=== PATIENT | male | born 1960 | race Hispanic/Latino ===

== ENCOUNTER 2021-12-22 11:33 | Emergency (ER) | payer SELFPAY ==
[2021-12-22 11:39] VITALS: BP 101/65
--- NOTE | 2021-12-22 12:21 | XRay Report ---
CHEST 2 VIEWS INDICATION: sob. COMPARISON: None available FINDINGS: Support devices: None. Heart: Within normal limits. Lungs/pleura: Advanced emphysematous changes are evident. Bullous changes are present in the upper lo bes. There is linear scarring in the right upper lobe. No evidence for acute infiltrate, pleural effu cici or pneumothorax. Additional findings: None. IMPRESSION: No acute findings. Advanced emphysema. Signer Name: Guero Esquivel Jr, MD Signed: 12/22/2021 12:17 PM Workstation Name: [id number]
== END 2021-12-22 18:47 | disposition left against medical advice (07) ==
LOC: ED 11:33
DX: R06.00 Dyspnea, unspecified (principal); Z53.21 Procedure and treatment not carried out due to patient leaving prior to being seen by health care provider
CPT/HCPCS: 71046

== ENCOUNTER 2021-12-23 07:16 | Emergency (ER) | payer SELFPAY ==
[2021-12-23 07:26] VITALS: BP 122/78
[2021-12-23 08:00] LABS: Basophils % (Auto) 0.3 % (0.0-1.8); Eosinophils # (Auto) 0.4 K/mm3 (0.0-0.4); Eosinophils % (Auto) 4.1 % (0.0-4.3); Hematocrit 42.5 % (35.5-45.6); Hemoglobin 13.6 gm/dl (11.8-15.2); Lymphocytes # (Auto) 1.8 K/mm3 (1.2-5.4); Lymphocytes % (Auto) 20.9 % (13.4-35.0); Mean Corpuscular HGB Conc 32 % (32-34); Mean Corpuscular Volume 90 fl (84-94); Monocytes # (Auto) 1.2 K/mm3 (0.0-0.8); Monocytes % (Auto) 14.1 % (0.0-7.3); Platelet Count 223 K/mm3 (140-440); Red Blood Count 4.71 M/mm3 (3.65-5.03); Red Cell Distribution Width 17.2 % (13.2-15.2)
[2021-12-23 08:29] LABS: Alanine Aminotransferase 8 units/L (7-56); Albumin 4.1 g/dL (3.9-5); Blood Urea Nitrogen 19 mg/dL (9-20); Calcium 8.7 mg/dL (8.4-10.2); Hemolysis Index 11
[2021-12-23] MEDS ORDERED: IPRATROPIUM 0.02% NEBU 2.5 ML IH ONE (08:30)
[2021-12-23] MEDS ORDERED: ALBUTEROL 2.5 MG/3 ML NEBU IH ONE (08:30)
--- NOTE | 2021-12-23 08:30 | Emergency Department Report ---
ED General Adult HPI - General Chief complaint: Dyspnea/Respdistress Stated complaint: COB Time Seen by Provider: 12/23/21 07:35 Source: patient Mode of arrival: Ambulatory Limitations: No Limitations - History of Present Illness Initial comments: 61-year-old male patient presents with complaints of shortness of breath starting this morning. Patient states he has a history of emphysema and uses only an albuterol inhaler as needed for shortness of breath. Patient states he is still a smoker. He denies any chest pain, hemoptysis, leg pain /swelling, recent long travel, history of DVT/PE/cancer, loss of taste or smell, or cough. Patient states he is otherwise feeling well and requesting coffee. Patient was noted to be smoking outside of the hospital. Patient also denies any other past medical history - Related Data Previous Rx's Medication Instructions Recorded Last Taken Type Albuterol Sulfate [Proventil Hfa] 6.7 gm IH Q4H PRN #1 container 12/23/21 Unknown Rx Prednisone [predniSONE 10 mg 10 mg PO .TAPER #1 pack 12/23/21 Unknown Rx (6-Day Pack, 21 Tabs)] Allergies Allergy/AdvReac Type Severity Reaction Status Date / Time No Known Allergies Allergy Verified 12/23/21 07:20 ED Review of Systems ROS: Stated complaint: COB Other details as noted in HPI Constitutional: denies: chills, diaphoresis, fever, malaise ENT: denies: throat pain Respiratory: shortness of breath. denies: cough Cardiovascular: denies: chest pain Gastrointestinal: denies: abdominal pain Musculoskeletal: denies: joint swelling Neurological: denies: headache ED Past Medical Hx - Past Medical History Previous Medical History?: No - Surgical History Past Surgical History?: No - Medications Home Medications: Home Medications Medication Instructions Recorded Confirmed Last Taken Type Albuterol Sulfate [Proventil Hfa] 6.7 gm IH Q4H PRN #1 container 12/23/21 Unknown Rx Prednisone [predniSONE 10 mg 10 mg PO .TAPER #1 pack 12/23/21 Unknown Rx (6-Day Pack, 21 Tabs)] ED Physical Exam - General Limitations: No Limitations General appearance: alert, in no apparent distress - Head Head exam: Present: atraumatic, normocephalic - Eye Eye exam: Present: normal appearance. Absent: scleral icterus - Neck Neck exam: Present: normal inspection - Respiratory Respiratory exam: Present: rhonchi (diffuse). Absent: wheezes, rales, stridor, accessory muscle use - Cardiovascular Cardiovascular Exam: Present: regular rate, normal rhythm - Extremities Exam Extremities exam: Absent: calf tenderness (no swelling or tenderness noted bilaterally to lowr extremities) - Neurological Exam Neurological exam: Present: alert, oriented X3, normal gait - Psychiatric Psychiatric exam: Present: normal affect, normal mood ED Course Vital Signs 12/23/21 12/23/21 07:24 09:08 Temperature 98.4 F Pulse Rate 67 Pulse Rate [ 102 H Bilateral] Respiratory 20 Rate Respiratory 20 Rate [Bilateral ] Blood Pressure 122/78 O2 Sat by Pulse 100 Oximetry ED Medical Decision Making - Lab Data Result diagrams: 12/23/21 07:49 12/23/21 07:49 Lab Results 12/23/21 12/23/21 12/23/21 Range/Units 07:49 07:49 07:49 WBC 8.6 (4.5-11.0) K/mm3 RBC 4.71 (3.65-5.03) M/mm3 Hgb 13.6 (11.8-15.2) gm/dl Hct 42.5 (35.5-45.6) % MCV 90 (84-94) fl MCH 29 (28-32) pg MCHC 32 (32-34) % RDW 17.2 H (13.2-15.2) % Plt Count 223 (140-440) K/mm3 Lymph % (Auto) 20.9 (13.4-35.0) % Cuming % (Auto) 14.1 H (0.0-7.3) % Eos % (Auto) 4.1 (0.0-4.3) % Baso % (Auto) 0.3 (0.0-1.8) % Lymph # (Auto) 1.8 (1.2-5.4) K/mm3 Cuming # (Auto) 1.2 H (0.0-0.8) K/mm3 Eos # (Auto) 0.4 (0.0-0.4) K/mm3 Baso # (Auto) 0.0 (0.0-0.1) K/mm3 Seg Neutrophils % 60.6 (40.0-70.0) % Seg Neutrophils # 5.2 (1.8-7.7) K/mm3 Sodium 143 (137-145) mmol/L Potassium 4.3 (3.6-5.0) mmol/L Chloride 106.8 (98-107) mmol/L Carbon Dioxide 25 (22-30) mmol/L Anion Gap 16 mmol/L BUN 19 (9-20) mg/dL Creatinine 0.7 L (0.8-1.3) mg/dL Estimated GFR > 60 ml/min BUN/Creatinine Ratio 27 % Glucose 99 (75-100) mg/dL Calcium 8.7 (8.4-10.2) mg/dL Total Bilirubin 0.30 (0.1-1.2) mg/dL AST 13 (5-40) units/L ALT 8 (7-56) units/L Alkaline Phosphatase 89 (35-129) units/L Troponin T < 0.010 (0.00-0.029) ng/mL NT-Pro-B Natriuret Pep 51.23 (0-900) pg/mL Total Protein 6.8 (6.3-8.2) g/dL Albumin 4.1 (3.9-5) g/dL Albumin/Globulin Ratio 1.5 % - Radiology Data Radiology results: report reviewed CHEST 2 VIEWS INDICATION: sob. COMPARISON: None available FINDINGS: Support devices: None. Heart: Within normal limits. Lungs/pleura: Advanced emphysematous changes are evident. Bullous changes are present in the upper lobes. There is linear scarring in the right upper lobe. No evidence for acute infiltrate, pleural effusion or pneumothorax. Additional findings: None. IMPRESSION: No acute findings. Advanced emphysema. - Medical Decision Making 61-year-old male patient presents with complaints of shortness of breath starting this morning. Patient states he has a history of emphysema and uses only an albuterol inhaler as needed for shortness of breath. Patient states he is still a smoker. He denies any chest pain, hemoptysis, leg pain/swelling, recent long travel, history of DVT/PE/cancer, loss of taste or smell, or cough. Patient states he is otherwise feeling well and requesting coffee. Patient was noted to be smoking outside of the hospital. Patient also denies any other past medical history Patient given hour-long DuoNeb. He states his symptoms have significantly improved. Chest x-ray shows advanced emphysema without acute abnormalities. No rales or wheezing noted on exam, however there are rhonchi noted. His vitals are within normal limits and he is nontoxic-appearing. No respiratory distress is noted. He is stable for discharge home. Patient to discharge home with prednisone a refill of his inhaler. Recommend follow-up with primary care within 3 to 5 days. Discussed in detail signs and symptoms that should prompt immediate return to the ED with patient verbalized understanding Critical care attestation.: If time is entered above; I have spent that time in minutes in the direct care of this critically ill patient, excluding procedure time. ED Disposition Clinical Impression: Acute exacerbation of emphysema Disposition: HOME / SELF CARE / HOMELESS Is pt being admited?: No Condition: Stable Instructions: Chronic Obstructive Pulmonary Disease (ED), Chronic Obstructive Pulmonary Disease, [id number] Prescriptions: Prednisone [predniSONE 10 mg (6-Day Pack, 21 Tabs)] 10 mg PO .TAPER #1 pack Albuterol Sulfate [Proventil Hfa] 6.7 gm IH Q4H PRN #1 container PRN Reason: Shortness Of Breath Referrals: PRIMARY CARE, [Primary Care Provider] - 3-5 Days Forms: Work/School Release Form(ED)
[2021-12-23 08:36] LABS: BUN/Creatinine Ratio 27
[2021-12-23] MEDS ORDERED: dexAMETHasone 4 MG/ML VIAL IM STA (10:01)
--- NOTE | 2021-12-23 10:58 | Electrocardiograph Report ---
[facility] Test Date: 2021-12-23 Test Time: 08:32:47 Pat Name: RUSH ALMONTE Department: Room: Gender: M Clinical Education Specialist: [id number] Requested By: MARSHALL MAYO Order Number: [id number] Reading MD: Zac Littlejohn Measurements Intervals [place] Rate: 66 P: 76 [place]: 131 QRS: 75 QRSD: 83 T: 81 QT: 403 QTc: 422 Interpretive Statements Sinus rhythm No previous ECG available for comparison Electronically Signed On 12-23-2021 10:57:52 EST by Zac Littlejohn
== END 2021-12-23 10:39 | disposition home or self-care (01) ==
LOC: ED 07:16
DX: J44.1 Chronic obstructive pulmonary disease with (acute) exacerbation (principal)
CPT/HCPCS: 36415; 80053; 83880; 84484; 85025; 93005; 93010; 94644; 99283

== ENCOUNTER 2021-12-25 18:12 | Emergency (ER) | payer SELFPAY ==
[2021-12-25] MEDS ORDERED: ALBUTEROL 2.5 MG/3 ML NEBU IH ONE (18:45)
[2021-12-25] MEDS ORDERED: IPRATROPIUM 0.02% NEBU 2.5 ML IH ONE (18:45)
[2021-12-25] MEDS ORDERED: predniSONE 20 MG TAB PO ONE (18:46)
--- NOTE | 2021-12-25 18:47 | Emergency Department Report ---
ED General Adult HPI - General Chief complaint: Dyspnea/Respdistress Stated complaint: SHORTNESS OF BREATH PUI?: No Time Seen by Provider: 12/25/21 18:42 Source: patient, RN notes reviewed, old records reviewed Mode of arrival: Ambulatory Limitations: No Limitations - History of Present Illness Initial comments: The patient was evaluated in the emergency department for symptoms described in the history of present illness. He/she was evaluated in the context of the global COVID-19 pandemic, which necessitated consideration that the patient might be at risk for infection with the virus that causes COVID-19. Institutional protocols and algorithms that pertain to the evaluation of patients at risk for COVID-19 are in a state of rapid change based on information released by regulatory bodies including the CDC and federal and state organizations. These policies and algorithms were followed during the patient's care in the emergency department. Please note that these policies, procedures and recommendations changed on a rapid basis. The patient is a 61-year-old gentleman with a history of COPD and emphysema and homelessness, who presents to the ER with a complaint of painless shortness of breath. He states he is not hard of hearing. He did not get his medications filled which were recently prescribed to him on previous ER visit. He felt improved after albuterol, Atrovent and steroids. He is not homicidal or suicidal. -: Gradual Consistency: constant Improves with: medication, rest Worsens with: none - Related Data Previous Rx's Medication Instructions Recorded Last Taken Type Albuterol Sulfate [Proventil Hfa] 6.7 gm IH Q4H PRN #1 container 12/25/21 Unknown Rx DOXYCYCLINE Hyclate [Vibramycin] 100 mg PO Q12HR #10 capsule 12/25/21 Unknown Rx Nicotine Polacrilex [Nicotine Gum] 4 mg BC PRN #1 pack 12/25/21 Unknown Rx Prednisone [predniSONE 10 mg 10 mg PO .TAPER #1 pack 12/25/21 Unknown Rx (6-Day Pack, 21 Tabs)] Allergies Allergy/AdvReac Type Severity Reaction Status Date / Time No Known Allergies Allergy Verified 12/23/21 07:20 ED Review of Systems ROS: Stated complaint: SHORTNESS OF BREATH Other details as noted in HPI Constitutional: denies: fever Respiratory: cough, shortness of breath, SOB with exertion, SOB at rest, wheezing Cardiovascular: denies: chest pain Gastrointestinal: denies: abdominal pain Neurological: denies: confusion ED Past Medical Hx - Medications Home Medications: Home Medications Medication Instructions Recorded Confirmed Last Taken Type Albuterol Sulfate [Proventil Hfa] 6.7 gm IH Q4H PRN #1 container 12/25/21 Unknown Rx DOXYCYCLINE Hyclate [Vibramycin] 100 mg PO Q12HR #10 capsule 12/25/21 Unknown Rx Nicotine Polacrilex [Nicotine Gum] 4 mg BC PRN #1 pack 12/25/21 Unknown Rx Prednisone [predniSONE 10 mg 10 mg PO .TAPER #1 pack 12/25/21 Unknown Rx (6-Day Pack, 21 Tabs)] ED Physical Exam - General Limitations: No Limitations General appearance: alert, in no apparent distress - Head Head exam: Present: atraumatic, normocephalic - Eye Eye exam: Present: normal appearance, EOMI. Absent: nystagmus - ENT ENT exam: Present: normal exam, normal orophraynx, mucous membranes moist, normal external ear exam - Neck Neck exam: Present: normal inspection, full ROM. Absent: tenderness, meningismus - Respiratory Respiratory exam: Present: wheezes, rhonchi. Absent: respiratory distress, rales, stridor - Cardiovascular Cardiovascular Exam: Present: regular rate, normal rhythm, normal heart sounds. Absent: bradycardia, tachycardia, irregular rhythm, systolic murmur, diastolic murmur, rubs, gallop - GI/Abdominal GI/Abdominal exam: Present: soft. Absent: distended, tenderness, rebound, rigid, pulsatile mass - Rectal Rectal exam: Present: deferred - Extremities Exam Extremities exam: Present: normal inspection, full ROM, other (2+ pulses noted in the bilateral upper and lower extremities. There is no palpable cord. negative Homans sign. Muscular compartments are soft. The pelvis is stable.). Absent: pedal edema, calf tenderness - Back Exam Back exam: Present: normal inspection, full ROM. Absent: tenderness, CVA tenderness (R), CVA tenderness (L), paraspinal tenderness, vertebral tenderness - Neurological Exam Neurological exam: Present: alert, oriented X3, other (No facial droop. Tongue midline. Extraocular movements intact bilaterally. Facial sensation intact to light touch in V1, V2, V3 distribution bilaterally. 5 and a 5 strength in 4 extremities. Sensation intact to light touch in 4 extremities.). Absent: motor sensory deficit - Psychiatric Psychiatric exam: Present: flat affect. Absent: homicidal ideation, suicidal ideation - Skin Skin exam: Present: warm, dry, intact, normal color. Absent: rash ED Course Vital Signs 12/25/21 12/25/21 12/25/21 18:19 18:52 20:09 Temperature 98.1 F Pulse Rate 105 H 96 H Pulse Rate [ 84 Posterior] Respiratory 24 20 Rate Respiratory 21 Rate [Posterior ] Blood Pressure 99/65 Blood Pressure 94/55 [Right] O2 Sat by Pulse 94 100 Oximetry - Pulse Oximetry Interpretation Digit-Finger Initial Pulse Oximetry Readin O2 Sat by Pulse Oximetry: 98 Actions Taken: none ED Medical Decision Making - Lab Data Vital Signs 12/25/21 12/25/21 12/25/21 18:19 18:52 20:09 Temperature 98.1 F Pulse Rate 105 H 96 H Pulse Rate [ 84 Posterior] Respiratory 24 20 Rate Respiratory 21 Rate [Posterior ] Blood Pressure 99/65 Blood Pressure 94/55 [Right] O2 Sat by Pulse 94 100 Oximetry - Medical Decision Making Differential diagnosis, including but not limited to: Emphysema, COPD, homelessness, encounter for medical screening examination Assessment and plan: 61-year-old gentleman, who is afebrile, with reassuring vital signs, who is clinically sober with a GCS of 15, who answers all my questions appropriately, presenting to the ER with a complaint of pain with COPD exacerbation. He felt improved after albuterol, Atrovent and steroids. On multiple reassessments, he is resting comfortably on his stretcher, and in no acute distress. He is suitable for discharge with outpatient follow-up at this time Critical care attestation.: If time is entered above; I have spent that time in minutes in the direct care of this critically ill patient, excluding procedure time. ED Disposition Clinical Impression: Acute exacerbation of emphysema Disposition: 01 HOME / SELF CARE / HOMELESS Is pt being admited?: No Does the pt Need Aspirin: No Condition: Good Instructions: Chronic Obstructive Pulmonary Disease (ED), Chronic Obstructive Pulmonary Disease, [id number] Additional Instructions: Please discontinue consumption of tobacco and smoke products. Please take the prescribed medications as needed and directed. Please follow-up with an outpatient primary care doctor within the next 7 to 10 days. Please return to the emergency room right away with new pain, worsened pain, migration of pain, projectile vomiting, change in mental status, confusion, inability tolerate liquid feeds, new, worsened or different symptoms not present on the initial emergency room evaluation Referrals: PRIMARY CARE, [Primary Care Provider] - 3-5 Days [facility] [Provider Group] - 3-5 Days [facility] [Outside] - 3-5 Days
[2021-12-25 20:09] VITALS: BP 94/55
== END 2021-12-25 23:37 | disposition home or self-care (01) ==
LOC: ED 18:12
DX: J43.9 Emphysema, unspecified (principal); Z79.899 Other long term (current) drug therapy
CPT/HCPCS: 94644; 99282

== ENCOUNTER 2021-12-26 17:41 | Emergency (ER) | payer SELFPAY ==
--- NOTE | 2021-12-26 19:16 | Emergency Department Report ---
ED General Adult HPI - General Chief complaint: Dyspnea/Respdistress Stated complaint: SOB PUI?: No Source: patient, RN notes reviewed, old records reviewed Mode of arrival: Ambulatory Limitations: No Limitations - History of Present Illness Initial comments: The patient was evaluated in the emergency department for symptoms described in the history of present illness. He/she was evaluated in the context of the global COVID-19 pandemic, which necessitated consideration that the patient might be at risk for infection with the virus that causes COVID-19. Institutional protocols and algorithms that pertain to the evaluation of patients at risk for COVID-19 are in a state of rapid change based on information released by regulatory bodies including the CDC and federal and state organizations. These policies and algorithms were followed during the patient's care in the emergency department. Please note that these policies, procedures and recommendations changed on a rapid basis. This is a 61-year-old homeless gentleman with a history of COPD and emphysema. I evaluated this patient yesterday. Please see my note from yesterday. The patient presented yesterday with a complaint of painless shortness of breath, cough and wheezing. He presented as alert, oriented, sober of sound mind, with decision-making capacity. He denies homicidality and suicidality. He was treated appropriately in the ER, noted to be sleeping on her stretcher, and subsequently discharged. He presents to the ER today with a complaint of painless shortness of breath. He states he has not got his medications feel that I prescribed for him yesterday - Related Data Previous Rx's Medication Instructions Recorded Last Taken Type Albuterol Sulfate [Proventil Hfa] 6.7 gm IH Q4H PRN #1 container 12/26/21 Unknown Rx DOXYCYCLINE Hyclate [Vibramycin 100 mg PO Q12HR #10 capsule 12/26/21 Unknown Rx CAP] Nicotine Polacrilex [Nicotine Gum] 4 mg BC PRN #1 pack 12/26/21 Unknown Rx Prednisone [predniSONE 10 mg 10 mg PO .TAPER #1 pack 12/26/21 Unknown Rx (6-Day Pack, 21 Tabs)] Allergies Allergy/AdvReac Type Severity Reaction Status Date / Time No Known Allergies Allergy Verified 12/23/21 07:20 ED Review of Systems ROS: Stated complaint: SOB Other details as noted in HPI Respiratory: shortness of breath ED Past Medical Hx - Medications Home Medications: Home Medications Medication Instructions Recorded Confirmed Last Taken Type Albuterol Sulfate [Proventil Hfa] 6.7 gm IH Q4H PRN #1 container 12/26/21 Unknown Rx DOXYCYCLINE Hyclate [Vibramycin 100 mg PO Q12HR #10 capsule 12/26/21 Unknown Rx CAP] Nicotine Polacrilex [Nicotine Gum] 4 mg BC PRN #1 pack 12/26/21 Unknown Rx Prednisone [predniSONE 10 mg 10 mg PO .TAPER #1 pack 12/26/21 Unknown Rx (6-Day Pack, 21 Tabs)] ED Physical Exam - General Limitations: No Limitations General appearance: alert, in no apparent distress - Head Head exam: Present: atraumatic, normocephalic - Eye Eye exam: Present: normal appearance, EOMI. Absent: nystagmus - ENT ENT exam: Present: normal exam, normal orophraynx, mucous membranes moist, n ormal external ear exam - Neck Neck exam: Present: normal inspection, full ROM. Absent: tenderness, meningismus - Respiratory Respiratory exam: Present: rhonchi (Very faint rhonchi noted). Absent: respiratory distress, wheezes, rales, stridor - Cardiovascular Cardiovascular Exam: Present: regular rate, normal rhythm, normal heart sounds. Absent: bradycardia, tachycardia, irregular rhythm, systolic murmur, diastolic murmur, rubs, gallop - GI/Abdominal GI/Abdominal exam: Present: soft. Absent: distended, tenderness, guarding, rebound, rigid, pulsatile mass - Rectal Rectal exam: Present: deferred - Extremities Exam Extremities exam: Present: normal inspection, full ROM, other (There is no long bony tenderness. The muscular compartments are soft. 2+ pulses noted in the bilateral upper extremities). Absent: calf tenderness - Back Exam Back exam: Present: normal inspection. Absent: tenderness, CVA tenderness (R), CVA tenderness (L), paraspinal tenderness, vertebral tenderness - Neurological Exam Neurological exam: Present: alert, normal gait, other (No facial droop. Tongue midline. Extraocular movements intact bilaterally. Facial sensation intact to light touch in V1, V2, V3 distribution bilaterally. 5 and a 5 strength in 4 extremities. Sensation intact to light touch in 4 extremities.). Absent: motor sensory deficit - Psychiatric Psychiatric exam: Present: flat affect - Skin Skin exam: Present: warm, dry, intact, normal color. Absent: rash ED Course Vital Signs 12/26/21 18:37 Temperature 98.2 F Pulse Rate 99 H Respiratory 24 Rate Blood Pressure 92/62 O2 Sat by Pulse 96 Oximetry ED Medical Decision Making - Lab Data Vital Signs 12/26/21 18:37 Temperature 98.2 F Pulse Rate 99 H Respiratory 24 Rate Blood Pressure 92/62 O2 Sat by Pulse 96 Oximetry - Medical Decision Making Differential diagnosis, including the not limited to: Homelessness, COPD, encounter for medical screening exam Assessment and plan: 61-year-old gentleman whom I evaluated yesterday, who is alert and oriented x3, and denies homicidality and suicidality, likely presenting for the purposes of group home and warmth. Patient does not meet criteria for 1013 hold or involuntary hold. He is sa turating well on room air. I will refill this patient's prescriptions. He will be discharged. Critical care attestation.: If time is entered above; I have spent that time in minutes in the direct care of this critically ill patient, excluding procedure time. ED Disposition Clinical Impression: COPD (chronic obstructive pulmonary disease), Homelessness Disposition: 01 HOME / SELF CARE / HOMELESS Is pt being admited?: No Does the pt Need Aspirin: No Condition: Good Instructions: Chronic Obstructive Pulmonary Disease, Chronic Obstructive Pulmonary Disease (ED) Additional Instructions: Please fill the medications that were prescribed for the patient yesterday. Please use the [employer] [facility] affordable prescription card to obtain affordable prescriptions. Please follow-up with an outpatient primary care doctor or lead consultant within the next week. Please return to the emergency room right away with new pain, worsened pain, migration of pain, projectile vomiting, change in mental status, confusion, inability tolerate liquid feeds, new, worsened or different symptoms not present on the initial emergency room evaluation Referrals: [facility] [Provider Group] - 3-5 Days
[2021-12-26 20:16] VITALS: BP 110/71
== END 2021-12-27 18:41 | disposition home or self-care (01) ==
LOC: ED 17:41
DX: J44.9 Chronic obstructive pulmonary disease, unspecified (principal); Z59.00 Homelessness unspecified; Z79.899 Other long term (current) drug therapy
CPT/HCPCS: 99282